=== PATIENT | male | born 1990 | race Two or more races ===

== ENCOUNTER 2023-02-12 17:47 | Emergency (ER) | payer OTHER ==
[~2023-02-12] VITALS: Ht 185.4 cm; Wt 104.3 kg
== END 2023-02-12 19:50 | disposition home or self-care (01) ==
LOC: ER 17:47
DX: S00.33XA Contusion of nose, initial encounter (principal); W18.39XA Other fall on same level, initial encounter; Y93.89 Activity, other specified; Y92.89 Other specified places as the place of occurrence of the external cause; K08.112 Complete loss of teeth due to trauma, class II